=== PATIENT | male | born 1955 | race Caucasian/White ===

== ENCOUNTER 2019-12-07 12:07 | Emergency (ER) | payer OTHER ==
[~2019-12-07] VITALS: Ht 170.2 cm; Wt 63.0 kg
[2019-12-07] MEDS ORDERED: MULTIVITAMINS- 12 INJECTION 10 ML, FOLIC ACID MDV 5 MG, THIAMINE HCL INJ 100 MG in SODI... IV STA (12:44)
[2019-12-07] MEDS ORDERED: LORAZEPAM INJ 2 MG/ML VIAL IV ONE (12:45)
[2019-12-07] MEDS ORDERED: SODIUM CHLORIDE FLUSH 10 ML SYR INJ PRN (12:45)
[2019-12-07] MEDS ORDERED: LISINOPRIL10 MG PO (12:49)
[2019-12-07] MEDS ORDERED: METOPROLOL TART50 MG PO (12:49)
[2019-12-07] MEDS ORDERED: POTASSIUM CHLORIDE 20 MEQ TAB CR PO ONE ×2 (13:50→15:00)
[2019-12-07] MEDS ORDERED: LORAZEPAM INJ 2 MG/ML VIAL ONE (13:58)
[2019-12-07] MEDS ORDERED: MAGNESIUM SULFATE 2GM/50ML 50 ML IV ONE (14:45)
[2019-12-07] MEDS ORDERED: ATIVAN2 MG PO (15:15)
== END 2019-12-07 16:11 | disposition left against medical advice (07) ==
LOC: FSED 12:32
DX: R27.0 Ataxia, unspecified (principal); F10.239 Alcohol dependence with withdrawal, unspecified; E86.0 Dehydration; E87.6 Hypokalemia; E83.42 Hypomagnesemia; Z20.828 Contact with and (suspected) exposure to other viral communicable diseases
CPT/HCPCS: 36415; 70450; 71045; 80048; 80076; 80320; 81003; 82553; 83735; 83880; 84484; 85025; 85610; 99284; J2060; J3411; J3475; J7030; U0002; 93005